=== PATIENT | male | born 1975 | race Caucasian/White ===

== ENCOUNTER → 2019-06-21 15:06 | Outpatient (REF) | payer BC, SELFPAY | LOC: ANHLAB 15:06 | PROVIDERS: PCP Family Medicine; Visit Provider Nurse Practitioner | DX: L72.0 Epidermal cyst (principal) | CPT/HCPCS: 88304 ==

== ENCOUNTER → 2020-04-28 10:00 | Outpatient (CLI) | payer BC, SELFPAY ==
[2020-04-28 11:55] LABS: Influenza Control Positive
[2020-04-29 01:17] LABS: SARS-CoV-2 RNA PCR Positive
== END ==
PROVIDERS: PCP Family Medicine; Visit Provider Nurse Practitioner Family
DX: U07.1 COVID-19 (principal); R68.89 Other general symptoms and signs
CPT/HCPCS: 87804; C9803; U0003; U0005

== ENCOUNTER 2021-08-15 01:11 | Day surgery (SDC) | payer BC, SELFPAY ==
[2021-08-02 13:42] VITALS: BMI 32.5
[2021-08-15 08:53] VITALS: BP 143/85; PULSE 57; RESP 20; TEMP 36.2; O2SAT 98; BMI 32.1
[2021-08-15] MEDS: LACTATED RINGERS 1,000 ML 150 ML IV CONT (09:00)
--- NOTE | 2021-08-15 10:07 | PM.HPGS ---
History of Present Illness History of Present Illness Consent: Risks, benefits, and alternatives have been discussed and questions answered. Patient agrees to proceed with procedure. Chief complaint: neoplasm screening Narrative: Bill Loza is a 46 year old male here for screening colonoscopy, had one about 10 years ago Review of Systems Constitutional: Constitutional: Denies headache(s) and Denies weakness Eyes: Eyes: Denies blurry vision ENT: Reports Normal hearing present, Denies headache(s) and Denies neck pain Cardiovascular: Cardiovascular: Denies chest pain and Denies dyspnea Respiratory: Respiratory: Denies dyspnea Gastrointestinal: Gastrointestinal: Reports no additional gastrointestinal complaints Genitourinary: Genitourinary: Denies dysuria Musculoskeletal: Musculoskeletal: Denies neck pain Integumentary/Breasts: Skin/Breast: Denies dry skin Neurologic: Reports Normal hearing present, Denies headache(s) and Denies weakness Psychiatric: Psychiatric: Denies anxiety Endocrine: Endocrine: Denies change in body appearance Hematologic/Lymphatic: Hematologic/Lymphatic: Denies easy bleeding Allergic/Immunologic: Allergic/Immunologic: Denies urticaria PMFSH Past Medical History Medical History Adult BMI 32.0-32.9 kg/sq m History of deviated nasal septum Restless leg Surgical History Surgical History History of hernia repair Family History Family History Father Family history of diabetes mellitus in first degree relative Grandparent Acute myocardial infarction Mother Diabetes mellitus Sibling No problems noted. 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 Spiritual care concerns: No Meds Home Medications and Allergies Home Medications Medication Instructions Recorded Confirmed Type trazodone 50 mg tablet See Rx Instructions PO QHS PRN 02/12/21 08/02/21 History insomnia ropinirole 0.5 mg tablet 2 mg PO .HS RLS #120 tabs 06/11/21 08/02/21 Rx dextroamphetamine-amphetamine 10 1 tablet PO DAILY #30 tabs 07/05/21 08/02/21 Rx mg tablet dextroamphetamine-amphetamine 20 20 mg PO DAILY #30 tabs 07/05/21 08/02/21 Rx mg tablet (Adderall) fluticasone propionate 50 1 spray intranasal DAILY #16 grams 07/05/21 08/02/21 Rx mcg/actuation nasal spray,suspension (Flonase Allergy Relief) syringe with needle, safety 3 mL #100 ea 07/05/21 08/02/21 Rx 22 gauge x 1 1/2 (BD Integra Syringe) testosterone cypionate 200 mg/mL 200 mg IM .COMPLEX #10 mL 07/23/21 08/02/21 Rx intramuscular oil (Depo-Testosterone) Allergies Allergy/AdvReac Type Severity Reaction Status Date / Time No Known Allergies Allergy Mild Verified 08/15/21 08:52 Vital Signs Vital Signs - 24 hr 08/15/21 08:53 Temperature 97.2 F L Pulse Rate 57 L Respiratory Rate 20 Blood Pressure 143/85 H Pulse Oximetry 98 Oxygen Delivery Room Air Exam Const: General: comfortable and no acute distress HENMT: General nose exam: Normal nares present Eyes: General: appearance normal, both eyes and all related structures Neck: Neck: no JVD Resp: Auscultation: clear to auscultation bilaterally Cardio: Rate: regular rate Rhythm: regular rhythm GI: Inspection: non-distended GI Palp: Yes Soft to palpation Skin: General skin exam: normal color Neuro: General: gait normal Speech: normal speech Extrem: General: normal to inspection Psych: Mental Sta
[2021-08-15 10:27] VITALS: BP 118/69; PULSE 59; RESP 12; O2SAT 96
[2021-08-15 10:37] VITALS: BP 123/82; PULSE 71; RESP 22; O2SAT 98
[2021-08-15 10:47] VITALS: BP 129/84; PULSE 52; RESP 15; O2SAT 99
== END 2021-08-15 10:50 | disposition home or self-care (01) ==
PROVIDERS: PCP Family Medicine; Visit Provider Internal Medicine Gastroenterology
PROC: 0DJD8ZZ Inspection of Lower Intestinal Tract, Via Natural or Artificial Opening Endoscopic (ICD-10-PCS; CPT 45378; principal; 2021-08-15 10:15)
DX: Z12.11 Encounter for screening for malignant neoplasm of colon (principal); D12.0 Benign neoplasm of cecum; D12.3 Benign neoplasm of transverse colon; D12.8 Benign neoplasm of rectum; K64.8 Other hemorrhoids; G25.81 Restless legs syndrome; Z87.891 Personal history of nicotine dependence
CPT/HCPCS: 45380; 45385; 88305; J2001; J2704; J7120

== ENCOUNTER 2022-11-29 11:00 | Emergency (ER) | payer BC, SELFPAY ==
--- NOTE | ~2022-11-29 | XR_ITS ---
EXAMINATION: XR finger 4th LT min 2V DATE: 11/29/2022 13:58 INDICATION: Left hand fourth digit dislocation status post reduction. TECHNIQUE: 2 views of left hand fourth digit were obtained. COMPARISON: Left hand fourth digit radiographs at 11:25 AM FINDINGS: Bone alignment is normal. There are multiple small chip fracture fragments around fourth pr oximal interphalangeal joint. Joint spaces are normal. IMPRESSION: 1. Small chip fracture fragments around fourth proximal interphalangeal joint. Reviewed, dictated and finalized at location A.
--- NOTE | ~2022-11-29 | XR_ITS ---
PA, oblique, and lateral views of the left fourth finger CLINICAL HISTORY: Injury FINDINGS: There is complete dorsal dislocation of the fourth PIP joint. Remaining joint spaces are pr eserved. No fracture evident. Soft tissues are unremarkable. IMPRESSION: Dorsal dislocation at the fourth PIP joint. No fracture seen. Reviewed, dictated and finalized at location .
[2022-11-29 11:07] VITALS: BP 159/82; PULSE 66; RESP 18; TEMP 36.4; O2SAT 97
[2022-11-29] MEDS: LIDOCAINE HCL 1% LOCAL INJ 10 ML VIAL INFILTRATE (13:41)
--- NOTE | 2022-11-29 14:01 | ED.UPPEXIN ---
HPI - Extremity Injury (Upper) General Chief Complaint: Extremity Injury, Upper Stated Complaint: left 4th digit injury Time Seen by Provider: 11/29/22 13:04 Source: patient Mode of arrival: ambulatory Limitations: no limitations History of Present Illness HPI narrative: This is a 47-year-old male that presents to the emergency department for finger injury sustained just prior to arrival. Reports he fell about 3 feet off of a porch. Caught himself with his hands. Sustained an injury to his left fourth finger. He did not hit his head or lose consciousness. No other injuries or focal areas of pain. Reports decreased range of motion. Denies numbness. Related Data Home Medications Medication Instructions Recorded Confirmed trazodone 50 mg tablet See Rx Instructions PO QHS PRN 02/12/21 11/25/22 insomnia Allergies Allergy/AdvReac Type Severity Reaction Status Date / Time No Known Allergies Allergy Mild Verified 11/29/22 12:01 Review of Systems Review of Systems: CONSTITUTIONAL: Denies fever MUSCULOSKELETAL: Reports joint pain, and myalgia. NEUROLOGIC: Denies numbness All systems reviewed & are unremarkable except as noted in HPI and below PMFSH Past Medical History Medical History Adult BMI 32.0-32.9 kg/sq m History of deviated nasal septum Restless leg Surgical History Surgical History History of hernia repair Family History Family History Father Family history of diabetes mellitus in first degree relative Grandparent Acute myocardial infarction Mother Diabetes mellitus Sibling No problems noted. 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 Gender identity (if verbalized by the patient): Male Spiritual care concerns: No Exam Narrative: GENERAL: Well-appearing, well-nourished, and in no acute distress. HEAD: Normocephalic, atraumatic. EYES: EOMI. EXTREMITIES: Decreased range of motion of the left fourth finger with obvious deformity. Normal sensation. Normal capillary refill SKIN: Warm, dry, no rash. NEURO: No focal deficits. Alert and oriented x3. PSYCH: Normal mood and affect Course Course Emergency Course: Patient agrees with plan of care Vital Signs Vital signs: Vital Signs Temperature 97.5 F L 11/29/22 11:07 Pulse Rate 66 11/29/22 11:07 Respiratory Rate 18 11/29/22 11:07 Blood Pressure 159/82 H 11/29/22 11:07 Pulse Oximetry 97 11/29/22 11:07 Oxygen Delivery Room Air 11/29/22 11:07 Temperature 97.5 F L 11/29/22 11:07 Pulse Rate 66 11/29/22 11:07 Respiratory Rate 18 11/29/22 11:07 Blood Pressure 159/82 H 11/29/22 11:07 Pulse Oximetry 97 11/29/22 11:07 Oxygen Delivery Room Air 11/29/22 11:07 Procedures Orthopedic Joint Reduction Joint #1: Orthopedic Joint Reduction Date: 11/29/22 Orthopedic Joint Reduction Time: 14:10 Time Out Performed: Yes Side: left Joint Reduction Location: finger Analgesia: nerve block Pre-Procedure Neuro Vascular Exam: normal Local Anesthesia: lidocaine 1% Amoun
== END 2022-11-29 14:41 | disposition home or self-care (01) ==
PROVIDERS: Emergency Provider Physician Assistant; PCP Family Medicine
DX: S62.615A Displaced fracture of proximal phalanx of left ring finger, initial encounter for closed fracture (principal); G25.81 Restless legs syndrome; F17.210 Nicotine dependence, cigarettes, uncomplicated; W13.8XXA Fall from, out of or through other building or structure, initial encounter
CPT/HCPCS: 26770; 73140; 99285

== ENCOUNTER 2023-01-22 13:30 | Outpatient (RCR) | payer BC, SELFPAY ==
--- NOTE | 2022-12-25 10:43 | OTOPEVAL1 ---
Assessment and note entered by Adi Dominguez, SUSANNAH/Nelson, CHT Evaluation Information Diagnosis Left ring finger PIP joint dislocation Onset 11/29/22 Subjective Information Patient dislocated the left ring finger PIP dorsally ~4 weeks ago. He has been splinted and weaned out of the splint, now just trying to use his finger as much as possible. He works from home on a computer, no issues with typing. Reports difficulties with gripping with resistance when working out or working in the yard. Reported Pain Level Pain Score 3: Self Report Assessment OT Clinical Summary Patient referred to OT s/p left ring finger PIP joint dislocation. He presents today with near normal ROM with gross flexion and a 10 degree extension lag at the PIP joint. He was issued ROM HEP as well as a finger sleeve for edema. Plan to continue to have the patient follow up for HEP progression, modalities, and functional therapeutic exercise to facilitate optimal functional use of the left hand for ADLs, weight lifting, and household tasks. Plan of Care Interventions Therapeutic Exercise,Manual Therapy,Therapeutic Activities,Paraffin OT Services Indicated Yes Treatment Frequency and 1x/week for 4 weeks Duration These treatments will address the objective and functional deficits as defined above. The patient will be advanced safely and appropriately in order for the patient to progress towards his/her prior level of function. Additional exercises will be introduced and as well as a comprehensive home exercise program upon discharge, if needed, ?to ensure carryover of functional gains achieved in the clinic. This treatment plan has been reviewed and agreement upon by the patient.
--- NOTE | 2023-01-22 14:08 | OTOPPROG ---
Assessment and note entered by SUSANNAH Valdovinos/Nelson, CHT Progress Update 01/22/23 Diagnosis Left ring finger PIP joint dislocation Onset 11/29/22 Subjective Information Patient dislocated the left ring finger PIP dorsally ~8 weeks ago. He has been using his hand for ADL tasks without difficulty. He reports heavy gripping is limited, like when he is doing lifts for instance. He is experiencing no pain at rest. Increased pain with any forceful gripping. ROM is near normal limits. Some residual swelling evident in the finger. He admits to not wearing finger compression sleeves as much as he should. Issued more of these today. Assessment OT Clinical Summary Patient referred to OT s/p left ring finger PIP joint dislocation. He presents today with near normal ROM. He no longer has an extension lag at the PIP joint. He continues to have some residual pain and edema. Plan to continue to have the patient follow up for HEP progression, modalities, and functional therapeutic exercise to facilitate optimal functional use of the left hand for ADLs, weight lifting, and household tasks. Plan of Care Interventions Therapeutic Exercise,Manual Therapy,Therapeutic Activities,Paraffin OT Services Indicated Yes Treatment Frequency and Follow up in 2 weeks. Duration These treatments will address the objective and functional deficits as defined above. The patient will be advanced safely and appropriately in order for the patient to progress towards his/her prior level of function. Additional exercises will be introduced and as well as a comprehensive home exercise program upon discharge, if needed, ?to ensure carryover of functional gains achieved in the clinic. This treatment plan has been reviewed and agreement upon by the patient.
--- NOTE | 2023-02-26 12:55 | PCOTNOTE ---
Patient hasn't been seen since his re-evaluation on 01/22/23. He has rescheduled his re-evaluation 3 times due to various reasons.
--- NOTE | 2023-03-11 08:48 | OTOPDC ---
Assessment and note entered by Adi Dominguez, SUSANNAH/Nelson, T Discharge Notification OT Clinical Summary Bill was referred to hand therapy with left ring finger PIP joint dislocation. He was making good progress with therapy. He progressed to having no pain at rest and was tolerating resistive licensed audiologist strengthening well. Questionable compliance with instructed materials. Unfortunately the patient has not returned for therapy follow up since his reassessment on . Please refer to that progress note for complete summary of patient's progress up to that point. Discharging OT.
== END 2023-03-11 09:25 | disposition home or self-care (01) ==
LOC: ANHOT 13:30
PROVIDERS: PCP Family Medicine; Visit Provider Plastic Surgery
DX: S63.639A Sprain of interphalangeal joint of unspecified finger, initial encounter (principal)
CPT/HCPCS: 97018; 97110; 97165

== ENCOUNTER → 2024-04-05 15:37 | Outpatient (REF) | payer BC, SELFPAY ==
--- OUTSIDE RECORDS SUMMARY | 2024-04-05 18:08 | XMS_ITS | Referral Summary ---
Author Organization [facility] Address [address] [place] [address] Care Team Providers Care Street Vendor Name Role Phone Willi Rudd MD Primary Care Provider [phone] Source Comments [facility],non-owned Affiliates and Associated Physician Practices is amultiple site organization consisting of ambulatory clinics and hospital sitesin [place], [place], [place] and [place]. This disclosure is being madepursuant to the Care Everywhere program and may not contain all information available regarding this patient. Last updated 17.[facility] Allergies No known active allergies Medications * Be aware that medications may not be up to date on this document. Alwaysverify current medications with the patient. Medication Sig Dispensed Refills Start Date End Date Status Amphetamine-Dextroamphetamine (ADDERALL PO) Active Social History Tobacco Use Types Packs/Day Years Used Date Smoking Tobacco: Former Cigarettes Q uit: 2018 Smokeless Tobacco: Never Sex and Gender Information Value Date Recorded Sex Assigned at Not on file Gender Identity Not on file Sexual Orientation Not on file Last Filed Vital Signs Vital Sign Reading Time Taken Comments Blood Pressure 138/78 05/20/2018 3:40 PM CDT Pulse 52 05/20/2018 3:40 PM CDT Temperature 36.6 C (97.8 F) 05/20/2018 3:40 PM CDT Respiratory Rate 19 05/20/2018 3:40 PM CDT Oxygen Saturation 99% 05/20/2018 3:40 PM CDT Inhaled Oxygen Concentration - - Weight 90.7 kg (200 lb) 05/20/2018 3:40 PM CDT Height 175.3 cm (5' 9 ) 05/20/2018 3:40 PM CDT Body Mass Index 29.53 05/20/2018 3:40 PM CDT Plan of Treatment Not on file Care Teams Street Vendor Relationship Specialty Start Date End Date Willi Rudd MD [address] [address] PCP - General 08/23/21
--- OUTSIDE RECORDS SUMMARY | 2024-04-05 18:08 | XMS_ITS | Patient Health Summary ---
Author Organization [facility] Address [address] [place] [address] Care Team Providers Care Roller Gold Leaf Name Role Phone Willi Rudd MD Primary Care Provider [phone] Note from [facility],non-owned Affiliates and Associated Physician Practices is amultiple site organization consisting of ambulatory clinics and hospital sitesin [place], [place], [place] and [place]. This disclosure is being madepursuant to the Care Everywhere program and may not contain all information available regarding this patient. Last updated 17.[facility] Allergies No known active allergies Medications * Be aware that medications may not be up to date on this document. Alwaysverify current medications with the patient. * Amphetamine-Dextroamphetamine (ADDERALL PO) Social History Tobacco Use Types Packs/Day Years [...] Mass Index 29.53 05/20/2018 3:40 PM CDT Procedures * CULTURE THROAT(Performed 05/20/2018) Performed for Acute pharyngitis, unspecified etiology * STREP A SCREEN - POINT OF CARE (AMB) STL(Performed 05/20/2018) Performed for Acute pharyngitis, unspecified etiology Results * [facility] Throat Culture (05/20/2018 3:53 PM CDT) Pathologist [facility] Culture [facility] Comment: CULTURE, THROAT MICRO NUMBER: [id number] TEST STATUS: FINAL SPECIMEN SOURCE: THROAT SPECIMEN QUALITY: ADEQUATE RESULT: No oropharyngeal pathogens recovered. Test Performed at: [facility] [address] [place] [address] VANDANA CHOW MD Microbiology ENTIRE THROAT (SURFACE REGION OF NECK) / Unknown 05/20/2018 3:53 PM CDT 05/20/2018 11:22 PM CDT Katarzyna Rowley APRN-MORTGAGE ADVISOR LAB - MICROBIOLOG Y ORDERABLES [address] [address] * STREP A SCREEN (05/20/2018) Pathologist [facility] Strep A Rapid POCT Negative Negative Strep A Internal Control Present Lot # [id number] Expiration Date 11/17/19 Throat ENTIRE THROAT (SURFACE REGION OF NECK) / Unknown 05/20/2018 Katarzyna Rowley APRN-MORTGAGE ADVISOR LAB - POINT OF CA RE ORDERABLES Care Teams Roller Gold Leaf Relationship Specialty Start Date End Date Willi Rudd MD [address] [place] [address] PCP - General 08/23/21
--- OUTSIDE RECORDS SUMMARY | 2024-04-05 18:08 | XMS_ITS | Clinical Summary ---
Author Organization [facility] Address [address] [place] [id number] Care Team Providers Care Offset Printing Pressmen Name Role Phone Willi Rudd MD Primary Care Provider [phone] Social History Tobacco Use Types Packs/Day Years Used Date Smoking Tobacco: Never Assessed Sex and Gender Information Value Date Recorded Sex Assigned at Not on file Legal Sex Male 4:19 PM CDT Gender Identity Not on file Sexual Orientation Not on file Plan of Treatment Health Maintenance Due Date Last Done Comments Colorectal Cancer Screening Colonoscopy (10 Years) 1975 Annual Physical 1978 Hepatitis C 1993 DTaP, Tdap and Td Vaccines ( 1 - Tdap) 1994 Hepatitis B Vaccines (1 of 3 - 19+ 3-dose series) 1994 COVID-19 Vaccine ( - 2023-2 5 season) 2023 Influenza Adult (#1) 2023 Meningococcal B Vaccine Aged Out No l onger eligible based on patient's age to complete this topic Meningococcal Vaccine Aged Out No cristina juanita eligible based on patient's age to complete this topic Pneumococcal Vaccine: Pediat rics (0 to 5 Years) and At-Risk Patients (6 to 64 Years) Aged Out No longer eligible b ased on patient's age to complete this topic RSV Immunizations Under 20 Months Aged Out No longer eligible based on patient's age to complete this topic Care Teams Offset Printing Pressmen Relationship Specialty Start Date End Date Willi Rudd MD [address] [address] PCP - General 11/08/12
--- OUTSIDE RECORDS SUMMARY | 2024-04-05 18:08 | XMS_ITS | Clinical Summary ---
Author Organization [facility] Address [address] [place] [address] Care Team Providers Care Bread Wrapper Operator Name Role Phone Willi Rudd MD Primary Care Provider [phone] Source Comments [facility],non-owned Affiliates and Associated Physician Practices is amultiple site organization consisting of ambulatory clinics and hospital sitesin [place], [place], [place] and [place]. This disclosure is being madepursuant to the Care Everywhere program and may not contain all information available regarding this patient. Last updated 17.[facility] Allergies No known active allergies Medications * [...] 05/20/2018 3:40 PM CDT Plan of Treatment Health Maintenance Due Date Last Done Comments COLOGUARD (AGES 45-75) - COL ON CA SCREENING 1975 COLON MONITORING 1975 COLONOSCOPY - COLON CA SCREENING 1975 CT COLONOGRAPHY - COLON CA SCREENING 1975 Colorectal Cancer Screening 1975 FIT - COLON CA SCREENING 1975 FLEX SIG - COLON CA SCREENING 1975 LIPID TESTING 1975 HIV SCREENING 1990 HEPATITIS C SCREENING 03/19/1993 DTAP/TDAP/TD VACCINES (1 - Tdap) 1994 HEPATITIS B VACCINE (1 of 3 - 19+ 3-dose series) 1994 SCREENING FOR DIABETES 05/20/2018 COVID-19 VACCINE (1 - 2023-2 5 season) 2023 INFLUENZA VACCINE (#1) 2023 DEPRESSION SCREENING 02/18/2024 ZOSTER VACCINE (1 of 2) 2025 HIB VACCINE Aged Out No longer eligi ble based on patient's age to complete this topic HPV VACCINE Aged Out No longer eligi ble based on patient's age to complete this topic MENINGOCOCCAL (Group B) VACCINE Aged Out No longer eligible based on patient's age to complete this topic MENINGOCOCCAL VACCINE Aged Out No cristina juanita eligible based on patient's age to complete this topic PNEUMOCOCCAL VACCINE Aged Out No long er eligible based on patient's age to complete this topic Care Teams Bread Wrapper Operator Relationship Specialty Start Date End Date Willi Rudd MD [address] [place] [address] [facility] - General 08/23/21
--- OUTSIDE RECORDS SUMMARY | 2024-04-05 18:08 | XMS_ITS | Referral Summary ---
Author Organization [facility] Address [address] [place] [id number] Care Team Providers Care Electrical Line Mechanic Name Role Phone Willi Rudd MD Primary Care Provider [phone] Encounters Date Type Department Care Team Description 04/01/2024 8:00 AM RECRUITING SPECIALIST Office Visit [facility] Neuro Sleep [address] [facility] 6th [address] [place] [address] Venita Bonner, PhD Insomnia due to medical condition (Primary Dx); RLS (restless legs syndrome) 03/16/2024 Telephone [facility] Neuro Sleep [address] [facility] 6th [address] [place] [address] Aundrea Ann MA 03/01/2024 10:15 AM RECRUITING SPECIALIST Office Visit [facility] Orthopaedic Surgery [address] [facility] 2nd [address] [place] [address] Elisabeth Sexton NP Plantar fasciitis (Primary Dx); Pes planus of both feet 01/27/2024 3:40 PM RECRUITING SPECIALIST Office Visit [facility] Neuro Sleep [address] [place] [address] Venita Bonner, PhD Insomnia due to medical condition (Primary Dx); RLS (restless legs syndrome) from Last 3 Months Allergies No known active allergies Medications NON FORMULARY, FOR CLINIC ADMINISTERED MEDICATIONS ONLY, (not in database)Indicati ons: c4 preworkout supplement Take 1 each by mouth as needed Active testosterone cypionate (DEPO-TESTOTERONE ) 200 mg/mL injectionIndicati ons:Androgen Deficiency Inject 1 mL (200 mg total) into the muscle as instructed every 14 (fourteen) days Active gabapentin (NEURONTIN) 300 mg capsuleIndication s:Restless Legs Syndrome Take one to two pills at 7pm po prn RLS 60 capsule 5 4 Active dextroamphetamine -amphetamine (ADDERALL) 10 mg tablet 4 Active dextroamphetamine -amphetamine (ADDERALL) 20 mg tablet 4 Active Active Problems Problem Noted Date Diagnosed Date Chronic tonsillitis 03/26/2023 Deviated nasal septum 03/26/2023 RLS (restless legs syndrome) 03/26/2023 ADHD (attention deficit hyperactivity disorder) 03/26/2023 Insomnia 03/26/2023 GÓMEZ (obstructive sleep apnea) 03/26/2023 Umbilical hernia without obstruction and without gangrene 03/25/2019 Overview (03/25/2019): Added automatically from request for surgery [id number] Plantar fasciitis 08/24/2011 Social History Tobacco Use Types Packs/Day Years Used Date Smoking Tobacco: Every Day Cigarettes 1 3 Last attempted to quit: 04/01/2019 Smokeless Tobacco: Never Alcohol Use Standard Drinks/Week Comments Yes 15 (1 standard drink = 0.6 oz pu re alcohol) AUDIT-C Answer Date Recorded Frequency of Alcohol Consumption Not on file 03/26/2023 Q2: How many drinks containi ng alcohol do you have on a typical day when you are drinking? Patient does not drink Frequency of Binge Drinking Not on file 08/2023 Sex and Gender Information Value Date Recorded Sex Assigned at Not on file Legal Sex Male 7:58 PM RECRUITING SPECIALIST Gender Identity Not on file Sexual Orientation Not on file Last Filed Vital Signs Vital Sign Reading Time Taken Comments Blood Pressure 146/84 10/02/2023 2:15 PM CDT Pulse 68 10/02/2023 2:15 PM CDT Temperature 37.1 C (98.8 F) 10/02/2023 2:15 PM CDT Respiratory Rate 20 05/02/2020 9:29 AM CDT Oxygen Saturation 95% 10/02/2023 2:15 PM CDT Inhaled Oxygen Concentration - - Weight 117.9 kg (260 lb) 12/04/2023 9:49 AM CDT Height 175.3 cm (5' 9 ) 12/04/2023 9:49 AM CDT Body Mass Index 38.4 12/04/2023 9:49 AM CDT Plan of Treatment Not on file Medical Devices Implanted Type Area Proof Technician Helper Device Identifier Shelf Expiration Date Model / Serial / Lot [employer] [id number] Ventralight St Sepra 6x4in Monofilament Absorbable Low Profile Latex Free - Sna - [id number] Implanted:Qty: 1 on 04/22/2019 by Gregorio Toledo MD PhD at [facility] Mesh N/A: Abdomen [employer] [id number] 01/14/2021 [id number] / NA / [id number] Procedures Procedure Name Priority Date/Time Associated Diagnosis Comments PLANTAR FASCIA INJECTION Routine 03/01/2024 10:15 AM RECRUITING SPECIALIST Plantar fasciitis from Last 3 Months Results * PLANTAR FASCIA INJECTION (03/01/2024 10:15 AM RECRUITING SPECIALIST) Narrative Elisabeth Sexton NP - 03/01/2024 10:15 AM RECRUITING SPECIALIST Elisabeth Sexton NP 03/01/2024 1:32 PM Plantar fascia injection Performed by: Elisabeth Sexton NP Authorized by: Elisabeth Sexton NP Plantar Fascia Injection: Consent Given by: Patient Procedure Details: Site: L plantar fascia Medications: 2 mL BUPivacaine HCl 0.5 % (5 mg/mL); 40 mg triamcinolone 40 mg/mL Patient tolerance: Patient tolerated the procedure well with no immediate complications Elisabeth Sexton NP IN CLINIC/BEDSIDE ORDERABLES F inal Result from Last 3 Months Insurance ANTHEM ACCESS CHOICE ANTHEM ACCESS CHOICE BLUE ACC CHOICE OOS ANTHEM ACCESS CHOICE Care Teams Electrical Line Mechanic Relationship Specialty Start Date End Date Willi Rudd MD PCP - General 10/22/16
--- OUTSIDE RECORDS SUMMARY | 2024-04-05 18:08 | XMS_ITS | Clinical Summary ---
Author Organization [facility] Address [address] [place] [phone] Care Team Providers Care Foiling Machine Adjuster Name Role Phone Willi Rudd MD Primary Care Provider + [phone] Allergies No known active allergies Medications NON [...] (03/25/2019): Added automatically from request for surgery [id number] Plantar fasciitis 08/24/2011 Encounters Date Type Department Care Team Description 04/01/2024 8:00 AM SECURITY REP Office Visit [facility] Neuro Sleep [address] [facility] 6th [address] [place] [address] Venita Bonner, PhD Insomnia due to medical condition (Primary Dx); RLS (restless legs syndrome) 03/16/2024 Telephone [facility] Neuro Sleep [address] [facility] 6[address] [place] [address] Aundrea Ann MA 03/01/2024 10:15 AM SECURITY REP Office Visit [facility] Orthopaedic Surgery [address] [facility] 2nd [address] [place] [phone] Elisabeth Sexton NP Plantar fasciitis (Primary Dx); Pes planus of both feet 01/27/2024 3:40 PM SECURITY REP Office Visit [facility] Neuro Sleep [address] [facility] [address] [place] [address] Venita Bonner, PhD Insomnia due to medical condition (Primary Dx); RLS (restless legs syndrome) from Last 3 Months Surgical History Surgery Date Site/Laterality Comments SHOULDER ARTHROSCOPY 2010 and 2012 Bilateral WISDOM TOOTH EXTRACTION NASAL SEPTUM SURGERY MYRINGOTOMY W/ TUBES KNEE ARTHROSCOPY W/ LATERAL RELEASE Family History Medical History Relation Name Comments Diabetes Father Dad Early Maternal Grandmother Grandma Hyperlipidemia Maternal Grandmother Grandma Diabetes Mother Mom Relation Name Status Comments Father Dad Maternal Grandmother Grandma Mother Mom Social History Tobacco Use Types Packs/Day Years [...] on file Legal Sex Male 7:58 PM SECURITY REP Gender Identity Not on file Sexual Orientation Not on file Obstetrics History Last Filed Vital Signs Vital Sign Reading [...] 12/04/2023 9:49 AM CDT Plan of Treatment Health Maintenance Due Date Last Done Comments Colon Cancer Screening-Colonoscopy 1975 Depression Screening 1975 Hepatitis C Screening 1975 Hepatitis B Screening 1993 Regular Well Visit/Exam 18-64 1993 Pneumococcal vaccine <65 (1 of 2 - PCV) 1994 Influenza Vaccine (#1) 2023 DTaP/Tdap/Td Vaccine (2 - Td or Tdap) 10/21/202805/2018 Medical Devices Implanted Type Area Shank Burnisher Device Identifier Shelf Expiration Date Model / Serial / Lot [employer] [id number] Ventralight St Sepra 6x4in Monofilament Absorbable Low Profile Latex Free - Sna - [id number] Implanted:Qty: 1 on 04/22/2019 by Gregorio Toledo MD PhD at [facility] Mesh N/A: Abdomen [employer] [id number] 01/14/2021 [id number] / NA / [id number] Procedures Procedure Name Priority Date/Time Associated Diagnosis Comments PLANTAR FASCIA INJECTION Routine 03/01/2024 10:15 AM SECURITY REP Plantar fasciitis from Last 3 Months Results * PLANTAR FASCIA INJECTION (03/01/2024 10:15 AM SECURITY REP) Narrative Elisabeth Sexton NP - 03/01/2024 10:15 AM SECURITY REP Elisabeth Sexton NP 03/01/2024 1:32 PM Plantar [...] inal Result from Last 3 Months Insurance [employer] ACCESS CHOICE [employer] ACCESS CHOICE BLUE ACC CHOICE OOS [facility] ACCESS CHOICE Care Teams Foiling Machine Adjuster Relationship Specialty Start Date End Date Willi Rudd MD PCP - General 10/22/16
--- OUTSIDE RECORDS SUMMARY | 2024-04-05 18:08 | XMS_ITS ---
Author Organization Unknown Address [address] [place] [phone] Phone Care Team Providers Care Tobacco Packing Machine Operator Name Role Phone SAVANNA LUCERO Attending Unavailable ER PHYSICIAN Secondary Unavailable Results CBC w/AUTOMATED DIFF - Colle ct Date/Time: 10/27/2022 11:02 [facility] ID: [id number] [address] [place], [place], [id number] LOINC: 80124-3 Test Value Unit Reference Range Code Code System Flag WBC 9.0 th/ul L=4.0 H=10.5 6690-2 LOINC RBC 5.01 mil/ul L=4.50 H=6.00 789-8 LOINC HGB 15.5 g/dl L=13.5 H=18.0 718-7 LOINC HCT 45.7 % L=41.0 H=52.0 4544-3 LOINC MCV 91 fL L=78 H=100 787-2 LOINC MCH 30.9 pg L=27.0 H=32.0 785-6 LOINC MCHC 33.9 g/dl L=32.0 H=36.0 786-4 LOINC RDW 12.4 % L=11.0 H=14.0 788-0 LOINC PLATELET 199 th/ul L=150 H=450 777-3 LOINC %NEUT 68.6 % L=50.0 H=70.0 770-8 LOINC %LYMPH 17.6 % L=20.0 H=40.0 736-9 LOINC L %MONO 8.4 % L=0.0 H=10.0 5905-5 LOINC %EOS 4.4 % L=0.0 H=3.0 713-8 LOINC H %BASO 0.7 % L=0.0 H=2.0 706-2 LOINC %IG 0.3 % L=0.0 H=2.0 #NEUT 6.2 th/ul 751-8 LOINC #LYMPHS 1.6 th/ul 731-0 LOINC #MONOS 0.8 th/ul 742-7 LOINC #EOS 0.4 th/ul 711-2 LOINC #BASO 0.1 th/ul 704-7 LOINC #IG 0.0 th/uL 86317-1 LOINC NRBC 0 /100 WBC L=0 H=0 MANUAL DIFF NOT INDICATED 28554-0 LOINC URIC ACID - Collect Date/Gokul e: 10/27/2022 11:02 [facility] ID: [id number] [address] [place] [address], [phone] LOINC: 3084-1 Test Value Unit Reference Range Code Code System Flag URIC ACID 5.5 mg/dl L=3.4 H=7.0 3084-1 LOINC FOOT AP LAT LT - Completed: 10/27/2022 10:56 LOINC: \TM00\12FI\LM03\RM80\SAM o\BM09\ \MRHo\ [address] [address] ---------NAME--------- NUMBER SEX AGE ADMIT DISC. XRAY# F/C TYPE RADERBETO NULL KATINA [id number] M 47 10/27/22 BB4 O/P DATE OF : 1975 M/R# [id number] PH#: [phone] RM \MRHx\ LOCATION: TRANSCRIBED: 10/27/22 11:27 [place] [id number] COMPLETED:10/27/22 10:56 [place] [id number] Foot/Heel Pain PHYSICIAN: SAVANNA Thao RADIOLOGY REPORT ORDER DATE and TIME: 10/27/2022 1043 [id number] FOOT AP LAT LT DATE OF SERVICE: 10/27/22 10:43 PATIENT EXAM: LEFT FOOT, 3 VIEWS HISTORY: Foot pain. COMPARISON: None available. FINDINGS: No acute fracture or dislocation. Degenerative change first MTP joint. Enthesophyte plantar fascial attachment. No erosive changes are evident. Soft tissue swelling is present at the first toe. Mild soft tissue swelling first MTP joint. IMPRESSION: Degenerative change first MTP joint Chronic plantar fasciitis. Soft tissue swelling first ray INTERPRETING RADIOLOGIST: Timi Ayala M.D. ELECTRONICALLY SIGNED BY: Timi Ayala M.D. Gallery Manager Initials: [facility] Gallery Manager Time: :27 Gallery Manager Date: 10/27/22 Signed Date/Time: 10/27/22 11:27 UNSIGNED TRANSCRIPTIONS ARE PRELIMINARY REPORTS AND DO NOT REPRESENT MEDICAL OR LEGAL DOCUMENTS. Social History Type Status Start Date End Date Code Code Syst em Sex Male Hospital Discharge Instructions Should you have any questions prior to discharge, please contact a member of your healthcare team. If you have left the hospital and have any questions, please contact your primary care physician. Reason For Referral No Data Found Plan of Treatment No Data Found Encounters Encounter Diagnosis Start Date Code Code Sys tem Pain in left foot 10/27/2022 SNOMED-CT Personal Care Team Section Performer Name Performer Role Active Date Inactive Da te Imaging Narrative Notes [facility] \TM00\12FI\LM03\RM80\DRAo\BM09\ \MRHo\ [address] [address] ---------NAME--------- NUMBER SEX AGE ADMIT DISC. XRAY# F/C TYPE RADERBETO AMBRIZ [id number] M 47 10/27/22 BB4 O/P DATE OF : 1975 M/R# [id number] PH#: [phone] RM \MRHx\ LOCATION: TRANSCRIBED: 10/27/22 11:[address] [place] [id number] COMPLETED:10/27/22 10:56 [id number] Foot/Heel Pain PHYSICIAN: SAVANNA P RADIOLOGY REPORT ORDER DATE and TIME: 10/27/2022 1043 [id number] FOOT AP LAT LT DATE OF SERVICE: 10/27/22 10:43 PATIENT EXAM: LEFT FOOT, 3 VIEWS HISTORY: Foot pain. COMPARISON: None available. FINDINGS: No acute fracture or dislocation. Degenerative change first MTP joint. Enthesophyte plantar fascial attachment. No erosive changes are evident. Soft tissue swelling is present at the first toe. Mild soft tissue swelling first MTP joint. IMPRESSION: Degenerative change first MTP joint Chronic plantar fasciitis. Soft tissue swelling first ray INTERPRETING RADIOLOGIST: Timi Ayala M.D. ELECTRONICALLY SIGNED BY: Timi Ayala M.D. Gallery Manager Initials: [facility] Gallery Manager Time: : Gallery Manager Date: 10/27/22 Signed Date/Time: 10/27/22 11:27 UNSIGNED TRANSCRIPTIONS ARE PRELIMINARY REPORTS AND DO NOT REPRESENT MEDICAL OR LEGAL DOCUMENTS.
== END ==
LOC: ANHLAB 15:37
PROVIDERS: PCP Family Medicine; Visit Provider Plastic Surgery
DX: C44.722 Squamous cell carcinoma of skin of right lower limb, including hip (principal)
CPT/HCPCS: 88305

== ENCOUNTER → 2024-04-20 15:38 | Outpatient (REF) | payer BC, SELFPAY | LOC: ANHLAB 15:38 | PROVIDERS: PCP Family Medicine; Visit Provider Plastic Surgery | DX: C44.629 Squamous cell carcinoma of skin of left upper limb, including shoulder (principal); D04.5 Carcinoma in situ of skin of trunk | CPT/HCPCS: 88305 ==

== ENCOUNTER → 2024-12-29 14:50 | Outpatient (REF) | payer BC, SELFPAY ==
--- NOTE | 2024-12-29 14:50 | S_PTH ---
PATIENT: Bill Loza LOC: [facility] U#:[id number] AGE/SX: 50/M ROOM: RE12/29/[address]: Benitez Edwards MD : 1975 BED: DIS: SPEC #: [id number] RECD: 12/30/24 07:04 STATUS: ANDREA CLARKE #: [id number] MICHELLE: 12/29/24 14:[address]: Benitez Edwards DEPT: [facility] Surgical RECD BY: Roselyn Finch ENTERED: 12/30/24 07:04 SP TYPE: Surgical OTHR DR: Willi Rudd MD Tissues: A - Skin Procedures: Hematoxylin and Eosin Stain Gross and Microscopic Level 4
== END ==
LOC: ANHLAB 14:50
PROVIDERS: PCP Family Medicine; Visit Provider Plastic Surgery
DX: L82.1 Other seborrheic keratosis (principal); L85.8 Other specified epidermal thickening
CPT/HCPCS: 88305